=== PATIENT | female | born 1990 | race Caucasian/White ===

== ENCOUNTER → 2016-08-20 | Outpatient (REF) | payer OTHER ==
[~2016-08-20] MED LIST: ACET50TA PO; ANUS2.5C2 TOP; DOCU10CA PO; GUMMCHW PO; IBUP80TA PO; MOM30SS PO; PERCOCET PO; PRE-TAB3 PO; ZOLO50TA PO
== END ==
LOC: M LAB REF 17:09
PROVIDERS: ATTEND Advanced Practice Midwife
DX: Z34.83 Encounter for supervision of other normal pregnancy, third trimester (principal); Z36 Encounter for antenatal screening of mother; Z3A.00 Weeks of gestation of pregnancy not specified

== ENCOUNTER 2016-09-04 12:54 | Outpatient (CLI) | payer OTHER ==
[~2016-09-04] VITALS: Ht 165.1 cm; Wt 81.0 kg
[2016-09-04 13:19] VITALS: BP 99/54
== END 2016-09-04 14:28 | disposition home or self-care (01) ==
LOC: M LDO 12:54
PROVIDERS: ATTEND Obstetrics & Gynecology
DX: O47.1 False labor at or after 37 completed weeks of gestation (principal); Z3A.38 38 weeks gestation of pregnancy

== ENCOUNTER → 2016-09-09 | Outpatient (CLI) | payer OTHER ==
[~2016-09-09] MED LIST changes: +ACET500C PO; +PRENTAB9 PO
[2016-09-09 17:59] LABS: MEAN CORPUSCULAR HEMOGLOBIN 29.2 pg (27.0-33.0); MEAN CORPUSCULAR HGB CONC 33.5 g/dl (32.0-36.5); MEAN CORPUSCULAR VOLUME 87.4 fl (80.0-96.0); RED CELL DISTRIBUTION WIDTH 13.3 % (11.5-14.5)
[2016-09-10 13:57] LABS: CONTROL LINE INT CTR LINE PRESENT; HIV SCRN NEGATIVE (NEGATIVE); HIV SCRN1 NEGATIVE (NEGATIVE)
== END ==
LOC: M LAB 16:39
PROVIDERS: ATTEND Advanced Practice Midwife
DX: Z34.82 Encounter for supervision of other normal pregnancy, second trimester (principal); Z36 Encounter for antenatal screening of mother; Z3A.00 Weeks of gestation of pregnancy not specified

== ENCOUNTER 2016-09-10 00:01 | Outpatient (CLI) | payer OTHER ==
[~2016-09-10] VITALS: Ht 165.1 cm; Wt 79.0 kg
[~2016-09-10 00:01] MED LIST changes: -ACET500C PO; -PRENTAB9 PO
[2016-09-10 00:14] VITALS: BP 109/69
== END 2016-09-10 01:45 | disposition home or self-care (01) ==
LOC: M LDO 00:01
PROVIDERS: ATTEND Obstetrics & Gynecology
DX: O47.1 False labor at or after 37 completed weeks of gestation (principal); Z3A.39 39 weeks gestation of pregnancy

== ENCOUNTER 2016-09-13 06:28 | Inpatient (IN) | payer OTHER ==
[~2016-09-13] VITALS: Ht 165.1 cm; Wt 81.0 kg
[2016-09-13] VITALS (7 sets, daily range): BP systolic 108–118; BP diastolic 58–77
[2016-09-13 07:02] LABS: MEAN CORPUSCULAR VOLUME 87.8 fl (80.0-96.0); RED CELL DISTRIBUTION WIDTH 13.6 % (11.5-14.5); WHITE BLOOD COUNT 9.4 K/mm3 (4.0-10.0)
[2016-09-13] MEDS ORDERED: OXYTOCIN 30 UNITS IN 0.9% NaCl 500ML IV BAG (J2590) As Ordered ONE (07:02)
[2016-09-13] MEDS ORDERED: OXYTOCIN DRIP 30 UNITS in APPROPRIATE DILUENT 1 EA IV SCH (08:02)
[2016-09-13] MEDS ORDERED: MEASLES,MUMPS,RUBELLA VACCINE INJ (MMR-II) (90707) SC SCH (08:15)
[2016-09-13] MEDS ORDERED: ACETAMINOPHEN 500 MG TAB PO PRN (08:15)
[2016-09-13] MEDS ORDERED: DOCUSATE SODIUM 100 MG CAP PO PRN (08:15)
[2016-09-13] MEDS ORDERED: RHOGAM 300 MCG (1500 IU) INJ (J2790) IM SCH (08:15)
[2016-09-13] MEDS ORDERED: METHYLERGONOVINE MALEATE 0.2 MG TAB PO PRN (08:15)
[2016-09-13] MEDS ORDERED: ANUSOL HC CREAM 30GM TOP PRN (08:15)
[2016-09-13] MEDS ORDERED: IBUPROFEN 800 MG TAB PO PRN (08:15)
[2016-09-13] MEDS ORDERED: DIBUCAINE 1% OINTMENT 30GM TOP PRN (08:15)
--- NOTE | 2016-09-13 08:36 | IPNPDOC ---
Obstetrical Progress Note Date of Service The patient was seen on 09/13/16 at 06:45. Progress Note HISTORY AND PHYSICAL SUBJECTIVE: [Patient is a 26-year-old female who is a at 39 weeks and 4 days gestation with an UTE of 09/16/2016 based off of a second trimester ultrasound that was done at 20 weeks 6 days gestation. She initiated care at a woman's perspective at 20 weeks gestation. Patient's care is complicated due to seeking care late in the second trimester, cigarette smoker, and noncompliance with care. Patient presented to labor and delivery with complaints of regular painful contractions. Contractions started at 2 AM and became painful at 4 AM. Patient denies leaking of fluid or vaginal bleeding. Reports active movement.] ALLERGIES: Penicillin CURRENT MEDICATIONS: None OBSTETRICAL HISTORY: September 2009: 40 week of a living male weighing 7 pounds; January 2012 at 38 weeks of di/di male twins both weighing 4 lbs. 8 oz. ; April 2015: at 40 weeks 5 days' gestation of a live male weighing 7 lbs. 5 oz. No complications noted with delivery. OBSTETRICAL LABS: O+ antibody negative, urine no growth, gonorrhea and chlamydia negative, GBS negative, hepatitis B negative, rubella immune, HIV negative, syphilis negative. PAST MEDICAL HISTORY: Chickenpox as a child, SURGICAL HISTORY: Laparoscopy FAMILY HISTORY: Son has hydronephrosis SOCIAL HISTORY: Patient is single. She is a smoker and currently smoking about 8 cigarettes per day. Denies drug or alcohol use or abuse. Denies history of physical, sexual, or emotional abuse. OBJECTIVE: heart rate baseline 125, moderate variability, 1 variable D cell noted with vaginal exam, contractions every 2-4 minutes. Vital signs: blood pressure 124/81, heart rate 87, respirations 18, temperature 97.0. SVE: 67 /90/0 station, closing bag of water, positive bloody show. ASSESSMENT: IUP at 39 weeks and 4 days gestation, active labor PLAN: Admitted to labor and delivery. IV per protocol and labs per protocol. Regular diet. Out of bed as tolerated. Patient does not desire pain management. Dr. Stack present when patient was admitted and aware of plan. Anticipate cervical change. Consider AROM. Anticipate vaginal delivery. VS, I&O, 24H, Fishbone VS, I&O, 24H, Fishbone Laboratory Tests 2 2/5/17 06:52: Serology Scanned Report Hepatitis B Testing Item Value Date Time White Blood Count 9.4 K/mm3 09/13/1649 Hemoglobin 12.2 g/dl 09/13/1649 Hematocrit 36.9 % 09/13/1649 Platelet Count 160 k/mm3 09/13/1649 WALTER KOENIG CNM Sep 13, 2016 07:06
--- NOTE | 2016-09-13 08:48 | DNPDOC ---
Delivery Note Delivery Note Patient Is a 26-year-old now G 4 P 4005 at 39 weeks 4 days gestation who presented to labor and delivery in active labor. AROM at 0716 to moderate meconium. The dining car conductor, Dr. Mcdermott, was notified of meconium. She progressed to fully dilated at 0722. Patient pushed to a spontaneous vaginal delivery at 0 732 to a living male in the ANNIKA position with restitution to LOT. No Nuchal cord. Shoulders delivered with ease and the corpus immediately followed. Baby placed on maternal abdomen crying and active. Cord clamped 2 and cut by father of baby after pulsation ceased. Cord gases not obtained but cord blood obtained. Spontaneous delivery of intact placenta with a three- vessel cord by Fierro mechanism at 0 736. Uterine hemostasis achieved by rapid infusion of IV Pitocin and uterine fundal massage. Perineum and vagina inspected and found to intact. EBL 200. 's 9/9. Weight 6 lbs. 12 oz , 3064 g. Mather's name is Reese and is bottle feeding. WALTER KOENIG CNM Sep 13, 2016 08:48
[2016-09-13] MEDS: PRENATAL VITAMIN TAB PO SCH (10:40)
[2016-09-14 05:37] VITALS: BP 108/60
[2016-09-14 07:38] VITALS: BP 108/60
[2016-09-14] MEDS: PRENATAL VITAMIN TAB PO SCH (07:50)
[2016-09-14] MEDS ORDERED: ACET500C PO (08:17)
[2016-09-14] MEDS ORDERED: PRENTAB9 PO (08:17)
== END 2016-09-14 19:44 | disposition home or self-care (01) | DRG 560 ==
LOC: M LDO 06:28 → M LDI 06:38 → M OBS 10:02
PROVIDERS: ADMIT Obstetrics & Gynecology; ATTEND Obstetrics & Gynecology
PROC: 10E0XZZ Delivery of Products of Conception, External Approach (ICD-10-PCS; principal; 2016-09-13)
PROC: 10907ZC Drainage of Amniotic Fluid, Therapeutic from Products of Conception, Via Natural or Artificial Opening (ICD-10-PCS; 2016-09-13)
DX: O99.334 Smoking (tobacco) complicating childbirth (principal); F17.210 Nicotine dependence, cigarettes, uncomplicated; Z3A.39 39 weeks gestation of pregnancy; Z91.19 Patient's noncompliance with other medical treatment and regimen; Z37.0 Single live birth

== ENCOUNTER 2016-12-12 14:51 | Emergency (ER) | payer OTHER ==
[~2016-12-12] VITALS: Ht 165.1 cm; Wt 68.0 kg
[~2016-12-12 14:51] MED LIST changes: +ACET500C PO; +PRENTAB9 PO
[2016-12-12 15:33] LABS: BASO % 0.6 % (0.0-1.0); EOS # 0.1 K/mm3 (0.0-0.50); EOS % 1.8 % (0.0-3.0); LARGE UNSTAINED CELL # 0.1 K/mm3 (0.0-0.4); LARGE UNSTAINED CELL % 1.1 % (0.0-4.0); LYMPH # 1.8 K/mm3 (1.5-6.5); LYMPH % 28.5 % (24.0-44.0); MEAN CORPUSCULAR HEMOGLOBIN 29.1 pg (27.0-33.0); MEAN CORPUSCULAR VOLUME 88.4 fl (80.0-96.0); MONO # 0.3 K/mm3 (0.0-0.8); MONO % 5.4 % (0.0-5.0); NEUTROPHILS # 3.8 K/mm3 (1.8-7.7); NEUTROPHILS % 62.6 % (36.0-66.0); PLATELET COUNT, AUTOMATED 202 k/mm3 (150-450); RED CELL DISTRIBUTION WIDTH 14.2 % (11.5-14.5); WHITE BLOOD COUNT 6.1 K/mm3 (4.0-10.0)
[2016-12-12 15:39] LABS: CONTROL LINE UCG INT CTR LINE PRESENT
[2016-12-12 15:51] LABS: ANION GAP 7 MEQ/L (8-16); BLOOD UREA NITROGEN 13 MG/DL (7-18); CALCIUM LEVEL 8.7 MG/DL (8.5-10.1); CARBON DIOXIDE LEVEL 27 MEQ/L (21-32); CHLORIDE LEVEL 106 MEQ/L (98-107); CREATININE FOR GFR 0.98 MG/DL (0.55-1.02); GLOMERULAR FILTRATION RATE > 60.0 (>60); GLUCOSE, FASTING 96 MG/DL (70-105); POTASSIUM SERUM 4.1 MEQ/L (3.5-5.1); SODIUM LEVEL 140 MEQ/L (136-145)
[2016-12-12 16:05] VITALS: BP 121/69
[2016-12-12] MEDS ORDERED: CIPR500T89 PO (16:05)
[2016-12-12] MEDS ORDERED: PYRI200T5 PO (16:05)
--- NOTE | 2016-12-13 08:57 | REP ---
RENAL ULTRASOUND: HISTORY: Left flank pain. COMPARISON: None. FINDINGS: Multiple ultrasonographic images of the right kidney show the right kidney to measure 11.4 x 5.1 x 4.1 cm. The renal cortical echotexture is unremarkable. There are no masses. There is good corticomedullary differentiation. There is no hydronephrosis. There are no perinephric fluid collections. Multiple ultrasonographic images of the right kidney show the left kidney to measure 10.4 x 5.7 x 4.8 cm. The renal cortical echotexture is unremarkable. There are no masses. There is good corticomedullary differentiation. There is no hydronephrosis. There are no perinephric fluid collections. IMPRESSION: Unremarkable renal ultrasonography. Signed by Ed Flores DO 12/13/2016 09:58 A
== END 2016-12-12 16:28 | disposition home or self-care (01) ==
LOC: M ED 15:16
DX: R30.0 Dysuria (principal); Z88.0 Allergy status to penicillin

== ENCOUNTER → 2017-08-27 | Outpatient (CLI) | payer MEDICAID, OTHER | LOC: M RAD 15:10 | DX: Z34.83 Encounter for supervision of other normal pregnancy, third trimester (principal); Z3A.32 32 weeks gestation of pregnancy | CPT/HCPCS: 76820 ==

== ENCOUNTER → 2017-09-02 | Outpatient (REF) | payer MEDICAID | LOC: M LAB REF 17:12 | DX: Z34.83 Encounter for supervision of other normal pregnancy, third trimester (principal) ==

== ENCOUNTER 2017-09-06 09:52 | Inpatient (IN) | payer MEDICAID ==
[2017-09-06 11:23] LABS: AMPHETAMINES URINE REFLEX NEGATIVE (NEGATIVE); BARBITURATES URINE REFLEX NEGATIVE (NEGATIVE); BENZODIAZEPINES URINE REFLEX NEGATIVE (NEGATIVE); CANNABINOIDS URINE REFLEX NEGATIVE (NEGATIVE); COCAINE METABOLITE URINE REFLE NEGATIVE (NEGATIVE); METHADONE URINE REFLEX NEGATIVE (NEGATIVE); OPIATES URINE REFLEX NEGATIVE (NEGATIVE); PHENCYCLIDINE URINE REFLEX NEGATIVE (NEGATIVE)
[2017-09-06 11:40] LABS: HEMATOCRIT 30.6 % (36.0-47.0); MEAN CORPUSCULAR HGB CONC 32.7 g/dl (32.0-36.5); MEAN CORPUSCULAR VOLUME 85.7 fl (80.0-96.0); PLATELET COUNT, AUTOMATED 162 10^3/uL (150-450); RED BLOOD COUNT 3.57 10^6/uL (4.00-5.40); RED CELL DISTRIBUTION WIDTH 13.9 % (11.5-14.5); WHITE BLOOD COUNT 7.8 10^3/uL (4.0-10.0)
[2017-09-06] MEDS ORDERED: LR 1,000 ML IV (12:01)
[2017-09-06] MEDS: BETAMETHASONE SOLUSPAN 6MG/ML INJ 5ML (J0702) IM (12:31)
[2017-09-06 12:39] LABS: HEPATITIS B SURFACE ANTIGEN NEGATIVE (NEGATIVE)
[2017-09-06 12:40] LABS: CHLAMYDIA DNA AMPLIFICATION POSITIVE (NEGATIVE); GC DNA AMPLIFICATION NEGATIVE (NEGATIVE)
[2017-09-06 13:08] LABS: HIV 1&2 SCREEN CENTAUR NEGATIVE (NEGATIVE)
[2017-09-06] MEDS: VANCOMYCIN HCL 1,000 MG, VIAL MATE ADAPTER 1 EACH in D5W 250 ML IV (13:36)
[2017-09-06] MEDS: LACTATED RINGER'S 1000 ML IV (14:43)
[2017-09-06] MEDS: AZITHROMYCIN 250 MG TAB PO (16:49)
[2017-09-06] MEDS: OXYTOCIN DRIP 30 UNITS in APPROPRIATE DILUENT 1 EA IV (17:35)
[2017-09-06 19:56] LABS: RUBELLA IgG QUALITATIVE IMMUNE (IMMUNE)
[2017-09-06] MEDS: LOPERAMIDE 2 MG CAP PO (22:40)
[2017-09-07] MEDS: BETAMETHASONE SOLUSPAN 6MG/ML INJ 5ML (J0702) IM (00:22)
[2017-09-07] MEDS: VANCOMYCIN HCL 1,000 MG, VIAL MATE ADAPTER 1 EACH in D5W 250 ML IV (01:50)
[2017-09-07 03:40] LABS: CORD GAS HCO3 V 17.9 MEQ/L; CORD GAS O2 SAT V 86.9 %; CORD GAS PCO2 V 28.2 mmHg; CORD GAS PH V 7.421 UNITS; CORD GAS PO2 V 39.9 mmHg; CORD GAS SBC V 20.1 MEQ/L; CORD GAS TCO2 V 18.8 MEQ/L
[2017-09-07 03:43] LABS: CORD GAS ABE A -5.1; CORD GAS HCO3 A 19.3 MEQ/L; CORD GAS O2 SAT A 78.1 %; CORD GAS PCO2 A 34.7 mmHg; CORD GAS PH A 7.364 UNITS; CORD GAS SBC A 19.8 MEQ/L; CORD GAS TCO2 A 20.4 MEQ/L
[2017-09-07] MEDS ORDERED: OXYTOCIN DRIP 30 UNITS in APPROPRIATE DILUENT 1 EA IV (03:54)
[2017-09-07] MEDS ORDERED: ACETAMINOPHEN 500 MG TAB PO (04:00)
[2017-09-07] MEDS ORDERED: MEASLES,MUMPS,RUBELLA VACCINE INJ (MMR-II) (90707) SC (04:00)
[2017-09-07] MEDS ORDERED: DOCUSATE SODIUM 100 MG CAP PO (04:00)
[2017-09-07] MEDS ORDERED: METHYLERGONOVINE MALEATE 0.2 MG TAB PO (04:00)
[2017-09-07] MEDS ORDERED: RHOGAM 300 MCG (1500 IU) INJ (J2790) IM (04:00)
[2017-09-07] MEDS: PRENATAL VITAMINS CHEWABLE TABLET PO (07:37)
[2017-09-07] MEDS: IBUPROFEN 800 MG TAB PO (14:34)
[2017-09-07] MEDS: DIBUCAINE 1% OINTMENT 30GM TOP (15:43)
[2017-09-08] MEDS: PRENATAL VITAMINS CHEWABLE TABLET PO (09:36)
== END 2017-09-08 10:45 | disposition home or self-care (01) | DRG 560 ==
LOC: M LDO 09:52 → M OBS 09-07 05:44 → M LDI 12:00
PROC: 10E0XZZ Delivery of Products of Conception, External Approach (ICD-10-PCS; principal; 2017-09-06)
DX: O42.013 Preterm premature rupture of membranes, onset of labor within 24 hours of rupture, third trimester (principal); O60.14X0 Preterm labor third trimester with preterm delivery third trimester, not applicable or unspecified; F17.210 Nicotine dependence, cigarettes, uncomplicated; Z3A.34 34 weeks gestation of pregnancy; Z91.19 Patient's noncompliance with other medical treatment and regimen; Z88.0 Allergy status to penicillin; O99.334 Smoking (tobacco) complicating childbirth; Z37.0 Single live birth

== ENCOUNTER 2018-09-12 18:46 | Inpatient (IN) | payer MEDICAID, SELFPAY ==
[~2018-09-12] VITALS: Ht 165.1 cm; Wt 61.5 kg
[~2018-09-12 18:46] MED LIST changes: -ACET50TA PO; +CIPR-249 PO; +MAPA500T2 PO; +MOTR200T44 PO; +PYRI1TAB5 PO; +TYLE500T78 PO
[2018-09-12 20:59] LABS: BASO % 0.2 % (0.0-1.0); EOS # 0.1 10^3/uL (0.0-0.50); EOS % 0.4 % (0.0-3.0); HEMATOCRIT 43.6 % (36.0-47.0); HEMOGLOBIN 14.2 g/dl (12.0-15.5); LYMPH # 0.9 10^3/uL (1.5-6.5); LYMPH % 7.1 % (24.0-44.0); MEAN CORPUSCULAR HEMOGLOBIN 30.2 pg (27.0-33.0); MEAN CORPUSCULAR HGB CONC 32.6 g/dl (32.0-36.5); MEAN CORPUSCULAR VOLUME 92.8 fl (80.0-96.0); MONO # 1.2 10^3/uL (0.0-0.8); MONO % 9.6 % (0.0-5.0); NEUTROPHILS # 10.3 10^3/uL (1.8-7.7); NEUTROPHILS % 82.3 % (36.0-66.0); PLATELET COUNT, AUTOMATED 180 10^3/uL (150-450); WHITE BLOOD COUNT 12.5 10^3/uL (4.0-10.0)
[2018-09-12] MEDS ORDERED: NS 1,000 ML IV ONE (21:00)
[2018-09-12] MEDS ORDERED: ACETAMINOPHEN TAB 650MG DOSE (2X325MG) PO ONE (21:00)
[2018-09-12 21:02] LABS: HCG, SERUM QUALITATIVE NEGATIVE (NEGATIVE)
[2018-09-12 21:10] LABS: ALBUMIN 3.7 GM/DL (3.2-5.2); ALT/SGPT 16 U/L (12-78); BILIRUBIN,DIRECT 0.2 MG/DL (0.0-0.2); BILIRUBIN,TOTAL 0.6 MG/DL (0.2-1.0); BLOOD UREA NITROGEN 14 MG/DL (7-18); CARBON DIOXIDE LEVEL 28 MEQ/L (21-32); CHLORIDE LEVEL 102 MEQ/L (98-107); CREATININE FOR GFR 0.83 MG/DL (0.55-1.30); GLOMERULAR FILTRATION RATE > 60.0 (>60); GLUCOSE, FASTING 91 MG/DL (70-100); LIPASE 44 U/L (73-393); POTASSIUM SERUM 4.5 MEQ/L (3.5-5.1); SODIUM LEVEL 137 MEQ/L (136-145); TOTAL PROTEIN 7.6 GM/DL (6.4-8.2)
[2018-09-12] MEDS ORDERED: CIPROFLOXACIN 400 MG in APPROPRIATE DILUENT 1 EA IV ONE (21:30)
[2018-09-12] MEDS ORDERED: ACETAMINOPHEN 325 MG TAB PO ONE (22:00)
--- NOTE | 2018-09-12 23:31 | REPVR ---
EXAM: CT Abdomen and Pelvis Without Contrast EXAM DATE/TIME: 09/12/2018 10:26 PM CLINICAL HISTORY: 28 years old, female; Pain; Abdominal pain; Localized; Right; Additional info: R colic TECHNIQUE: Axial computed tomography images of the abdomen and pelvis without contrast. All CT scans at this facility use at least one of these dose optimization techniques: automated exposure control; mA and/or kV adjustment per patient size (includes targeted exams where dose is matched to clinical indication); or iterative reconstruction. Coronal and sagittal reformatted images were created and reviewed. COMPARISON: CT ABD PELVIS W/O CONTRAST 10/28/2015 12:47 PM FINDINGS: Lower thorax: No acute findings. ABDOMEN: Liver: There is low attenuation adjacent to the falciform ligament of the liver consistent with focal fatty infiltration. Gallbladder and bile ducts: The gallbladder is contracted with no stones. Pancreas: Normal. No ductal dilation. Spleen: Normal. No splenomegaly. Adrenals: Normal. No mass. Kidneys and ureters: Dense bilateral renal papillae. Right perinephric induration with no hydronephrosis. No ureteral calculi are identified. Stomach and bowel: Normal. No obstruction. No mucosal thickening. Appendix: There are no changes of appendicitis. A normal appendix is not seen. PELVIS: Bladder: Trace gas in urinary bladder. Reproductive: Unremarkable as visualized. ABDOMEN and PELVIS: Intraperitoneal space: Normal. No free air. No significant fluid collection. Bones/joints: No acute fracture. No dislocation. Soft tissues: Unremarkable. Vasculature: Normal. No abdominal aortic aneurysm. Lymph nodes: Normal. No enlarged lymph nodes. IMPRESSION: 1. Dense bilateral renal papillae which may be seen with a predisposition for stone formation although no definite renal or ureteral calculi are evident. 2. Right perinephric induration may reflect residual obstructive uropathy from a recently passed stone. Right pyelonephritis is not excluded. 3. Trace gas in the urinary bladder which may reflect recent catheterization. Electronically signed by: Curt Gordillo On 09/12/2018 23:31:19 PM
[2018-09-13] MEDS ORDERED: METOCLOPRAMIDE INJ 10MG/2ML VIAL (J2765) IV ONE
[2018-09-13] MEDS ORDERED: MORPHINE 10 MG/ML 1ML VIAL (J2270) IV ONE
[2018-09-13] MEDS: NS 1,000 ML IV SCH ×3 (02:50→20:07)
[2018-09-13] MEDS ORDERED: ONDANSETRON 4MG/2ML VIAL (J2405) IV PRN (03:00)
[2018-09-13] MEDS: HEPARIN SOD (PORCINE) 5000 UNITS/ML VIAL SC SCH ×3 (06:00→22:00)
--- NOTE | 2018-09-13 07:05 | HPE ---
DATE OF ADMISSION: 09/13/2018 CHIEF COMPLAINT: Burning on urination, abdominal pain, flank pain, fevers and chills. HISTORY OF PRESENT ILLNESS: Patient is a 28-year-old female. She has no significant past medical history. Presents to the emergency department with dysuria, frequency, burning for the past 2 weeks and right flank pain for the past 2 days. She denies nausea, vomiting, chest pain, cough, fevers, chills, shortness of breath. PAST MEDICAL HISTORY: See history of present illness. PAST SURGICAL HISTORY: None. HOME MEDICATIONS: None. ALLERGIES: PENICILLIN, PENICILLIN CROSS REACTORS. SOCIAL HISTORY: Smoker half a pack per day. Denies alcohol or elicit drug use. FAMILY HISTORY: Diabetes. REVIEW OF SYSTEMS: 12 point review of system was completed all of which were negative except those listed in history of present illness. VITALS ON ADMISSION: T-max 102, pulse 112, respirations 17, blood pressure 129/68, sating 100% on room air. PHYSICAL EXAMINATION: General: She is well nourished, in no apparent distress. Head: Normocephalic, atraumatic. Eyes: Extraocular movements are intact. Pupils equal, round, and reactive to light. Neck is supple. No jugular venous pulse. Lungs: Clear to auscultation. No crackles, wheezes, rales or rhonchi. Cardiovascular: Regular rate and rhythm. Normal S1, S2. No murmurs, gallops or rubs. Abdomen: Suprapubic tenderness but no rebound or guarding. Positive bowel sounds. Right CVA tenderness. Neurological exam: Alert and oriented times three. No focal deficits. Skin is intact. No rashes, lesions or breakdown. LABS AND IMAGES IN THE EMERGENCY ROOM: White count of 12, hemoglobin and hematocrit 14/43, platelet count of 180. BUN and creatinine 14/0.83. UA shows too numerous to count WBCs. Positive nitrites, bacteria. CT of the abdomen and pelvis shows dense bilateral renal papillae which may be seen with predisposition for stone formation although no definitive renal or ureteral calculi evident. Right perinephric induration may reflect residual obstructive uropathy from a recently passed stone. Right pyelonephritis not excluded. Trace gas in the urinary bladder which may reflect recent catheterization. ASSESSMENT AND PLAN: Sepsis secondary to pyelonephritis. Will place the patient on Cipro. Will await urine culture. IV fluids and Zofran as needed nausea, morphine as needed pain. Supportive deep venous thrombosis (DVT) prophylaxis, heparin subcutaneous. Gastrointestinal (GI) prophylaxis not indicated. Diet: Regular. Tobacco abuse. Patient denies nicotine replacement therapy.
[2018-09-13] MEDS: ACETAMINOPHEN TAB 650MG DOSE (2X325MG) PO PRN ×3 (07:30→21:03)
[2018-09-13] MEDS: MEROPENEM INJ 1 GM in APPROPRIATE DILUENT 1 EA IV SCH ×2 (09:21→16:14)
[2018-09-13 09:24] LABS: HEMATOCRIT 35.3 % (36.0-47.0); HEMOGLOBIN 11.8 g/dl (12.0-15.5); MEAN CORPUSCULAR HEMOGLOBIN 30.3 pg (27.0-33.0); MEAN CORPUSCULAR HGB CONC 33.4 g/dl (32.0-36.5); MEAN CORPUSCULAR VOLUME 90.7 fl (80.0-96.0); PLATELET COUNT, AUTOMATED 143 10^3/uL (150-450); RED BLOOD COUNT 3.89 10^6/uL (4.00-5.40); WHITE BLOOD COUNT 13.8 10^3/uL (4.0-10.0)
[2018-09-13 09:55] LABS: ALBUMIN 2.7 GM/DL (3.2-5.2); ALT/SGPT 12 U/L (12-78); BILIRUBIN,TOTAL 0.5 MG/DL (0.2-1.0); BLOOD UREA NITROGEN 10 MG/DL (7-18); CARBON DIOXIDE LEVEL 24 MEQ/L (21-32); CHLORIDE LEVEL 105 MEQ/L (98-107); CREATININE FOR GFR 0.71 MG/DL (0.55-1.30); GLOMERULAR FILTRATION RATE > 60.0 (>60); GLUCOSE, FASTING 130 MG/DL (70-100); POTASSIUM SERUM 3.5 MEQ/L (3.5-5.1); SODIUM LEVEL 136 MEQ/L (136-145)
[2018-09-13] MEDS ORDERED: CIPROFLOXACIN 400 MG in APPROPRIATE DILUENT 1 EA IV SCH (10:00)
[2018-09-13 10:16] LABS: ANISOCYTOSIS 1+; ATYPICAL LYMPH 1 % (0-5); LYMPHOCYTES 17 % (16-52); MONOCYTES 13 % (0-8); NEUTROPHILS 68 % (35-75); PLATELET ESTIMATE DECREASED (NORMAL)
[2018-09-13 12:00] VITALS: BP 99/59
[2018-09-13] MEDS: MORPHINE 4 MG/ML 1ML VIAL/SYRINGE (J2270) IV PRN (12:22)
[2018-09-13 14:53] VITALS: BP 99/54
[2018-09-13 16:00] VITALS: BP 110/54
[2018-09-13 20:00] VITALS: BP 128/69
[2018-09-14] VITALS: BP 111/56
[2018-09-14] MEDS: MEROPENEM INJ 1 GM in APPROPRIATE DILUENT 1 EA IV SCH ×3 (01:11→15:48)
[2018-09-14] MEDS: NS 1,000 ML IV SCH ×3 (02:44→22:03)
[2018-09-14] MEDS: ACETAMINOPHEN TAB 650MG DOSE (2X325MG) PO PRN ×2 (04:55→15:14)
[2018-09-14 05:00] VITALS: BP 101/59
[2018-09-14 05:08] LABS: HEMATOCRIT 37.1 % (36.0-47.0); HEMOGLOBIN 12.1 g/dl (12.0-15.5); MEAN CORPUSCULAR HEMOGLOBIN 29.7 pg (27.0-33.0); MEAN CORPUSCULAR HGB CONC 32.6 g/dl (32.0-36.5); MEAN CORPUSCULAR VOLUME 90.9 fl (80.0-96.0); PLATELET COUNT, AUTOMATED 142 10^3/uL (150-450); RED BLOOD COUNT 4.08 10^6/uL (4.00-5.40); WHITE BLOOD COUNT 11.7 10^3/uL (4.0-10.0)
[2018-09-14 05:37] LABS: BLOOD UREA NITROGEN 7 MG/DL (7-18); CALCIUM LEVEL 7.9 MG/DL (8.5-10.1); CARBON DIOXIDE LEVEL 23 MEQ/L (21-32); CHLORIDE LEVEL 107 MEQ/L (98-107); CREATININE FOR GFR 0.62 MG/DL (0.55-1.30); GLOMERULAR FILTRATION RATE > 60.0 (>60); GLUCOSE, FASTING 85 MG/DL (70-100); POTASSIUM SERUM 3.8 MEQ/L (3.5-5.1); SODIUM LEVEL 137 MEQ/L (136-145)
[2018-09-14] MEDS: HEPARIN SOD (PORCINE) 5000 UNITS/ML VIAL SC SCH ×3 (06:00→22:03)
[2018-09-14 08:00] VITALS: BP 100/55
[2018-09-14] MEDS ORDERED: ISOVUE-370 76% 100ML VIAL (Q9967) As Ordered ONE (11:26)
--- NOTE | 2018-09-14 12:21 | REP ---
CT abdomen and pelvis with IV but without oral contrast: History: Followup pyelonephritis. Elevated CRP level, fever. Comparison study September 12, 2018. CT contrast dose: 100 mL intravenous Isovue 370. CT findings: Preliminary digital court clerk radiograph demonstrates gaseous distension of the colon consistent with ileus. The lung bases remain clear. The liver and spleen are normal in size and homogeneous in texture. No adrenal lesion is seen. No pancreatic abnormality is noted. There is no evidence of ascites. There are patchy areas of decreased enhancement in the right renal parenchyma at mid upper pole level consistent with pyelonephritis. There is no evidence to suggest renal carbuncle or perinephric abscess. There is still some edema in the perinephric fat surrounding the right kidney unchanged from December 10, 2018 prior study. There is minimal enhancement in the renal pelvic lining which goes along with pyelonephritis. No stone disease is appreciated. No arterial or venous abnormality is observed. The left kidney is morphologically intact. No retroperitoneal mass or adenopathy is seen. The uterus is retroverted and retroflexed. No adnexal abnormality is seen. Multiple air and fluid filled loops of small and large bowel are seen throughout the abdomen consistent with ileus pattern. No evidence of free air or abnormal fluid collection. Impression: Findings compatible with pyelonephritis affecting the mid and upper pole of the right kidney. No evidence of abscess. Some persistent perinephric edema. No stone disease seen. Ileus pattern in the bowel gas. Electronically Signed by Aneesh Simmons MD 09/14/2018 06:52 P
--- NOTE | 2018-09-14 14:41 | IPNPDOC ---
Text Note Date of Service The patient was seen on 09/14/18. NOTE Subjective: Patient states abdominal pain is improving. Denies any nausea or v omiting. Was initially planning to leave AGAINST MEDICAL ADVICE however decided to stay for further medical treatment. Objective: Vitals: (see below) General: No acute distress, laying comfortably in bed. HEENT: Moist mucous membranes. Neck: No JVD or lymphadenopathy Cardiac: RRR, No murmurs Pulm: Clear to auscultation b/l. No wheezing, rhonchi Abd: NT/ND + BS. Minimal tenderness at the right CVA. Ext: No edema or cyanosis Neuro: Strength 5/5 BUE and BLE. CN 2-12 intact. F to N intact Negative pronator drift. Alert and oriented 3. Labs (see below) Images: CT abdomen and pelvis on 09/14/18 Impression: Findings compatible with pyelonephritis affecting the mid and upper pole of the right kidney. No evidence of abscess. Some persistent perinephric edema. No stone disease seen. Ileus pattern in the bowel gas. Assessment/Plan 1. Sepsis secondary to acute pyelonephritis. On meropenem pending a urine culture. Blood cultures negative thus far. Patient is not tachycardic at this t vern. Continue IV fluids. Leukocytosis improving. 2. Tobacco abuse cessation counseling. DVT prophy: Heparin subcutaneous VS,Fishbone, I+O VS, Fishbone, I+O Laboratory Tests 09/14/18 04:49 Red Blood Count 4.08, Mean Corpuscular Volume 90.9, Mean Corpuscular Hemoglobin 29.7, Mean Corpuscular Hemoglobin Concent 32.6, Red Cell Distribution Width 12.8, Calcium Level 7.9 L Vital Signs Date Time Temp Pulse Resp B/P (MAP) Pulse Ox O2 Delivery O2 Flow Rate FiO2 09/14/18 08:00 98.4 82 22 100/55 (70) 99 09/13/18 00:20 Room Air I&O- Last 24 Hours up to 6 AM 09/14/18 06:00 Intake Total 2930 ml Output Total 1650 ml Balance 1280 ml ANNY HERRMANN MD Sep 14, 2018 14:41
[2018-09-14 16:00] VITALS: BP 110/67
[2018-09-14 20:00] VITALS: BP 108/62
[2018-09-15] MEDS: MORPHINE 4 MG/ML 1ML VIAL/SYRINGE (J2270) IV PRN (00:36)
[2018-09-15] MEDS: MEROPENEM INJ 1 GM in APPROPRIATE DILUENT 1 EA IV SCH ×2 (00:37→09:39)
[2018-09-15 04:52] VITALS: BP 98/52
[2018-09-15 05:02] LABS: HEMATOCRIT 33.5 % (36.0-47.0); HEMOGLOBIN 11.2 g/dl (12.0-15.5); MEAN CORPUSCULAR HEMOGLOBIN 29.5 pg (27.0-33.0); MEAN CORPUSCULAR HGB CONC 33.4 g/dl (32.0-36.5); MEAN CORPUSCULAR VOLUME 88.2 fl (80.0-96.0); PLATELET COUNT, AUTOMATED 150 10^3/uL (150-450); WHITE BLOOD COUNT 7.6 10^3/uL (4.0-10.0)
[2018-09-15 05:21] LABS: BLOOD UREA NITROGEN 4 MG/DL (7-18); CALCIUM LEVEL 7.7 MG/DL (8.5-10.1); CARBON DIOXIDE LEVEL 25 MEQ/L (21-32); CHLORIDE LEVEL 108 MEQ/L (98-107); CREATININE FOR GFR 0.45 MG/DL (0.55-1.30); GLOMERULAR FILTRATION RATE > 60.0 (>60); GLUCOSE, FASTING 99 MG/DL (70-100); POTASSIUM SERUM 3.7 MEQ/L (3.5-5.1); SODIUM LEVEL 139 MEQ/L (136-145)
[2018-09-15] MEDS: HEPARIN SOD (PORCINE) 5000 UNITS/ML VIAL SC SCH (05:46)
[2018-09-15 05:55] VITALS: BP 118/70
[2018-09-15] MEDS ORDERED: ACID1CAP5 PO (10:23)
[2018-09-15] MEDS ORDERED: LEVA750T7 PO (10:23)
--- NOTE | 2018-09-15 16:29 | DS.PDOC ---
Discharge Summary General Date of Admission Sep 13, 2018 at 02:50 Date of Discharge 09/15/18 Attending Physician: ANNY HERRMANN MD Discharge Summary PROCEDURES PERFORMED DURING STAY: None. ADMITTING/DISCHARGE DIAGNOSES: 1. Acute Pyelonephritis COMPLICATIONS/CHIEF COMPLAINT: Dysuria/flank pain HISTORY OF PRESENT ILLNESS/HOSPITAL COURSE: This is a 28 y/o F with no significant PMHx who presents with dysuria and flank pain. Pt was started on IVF, CT Abd/pelvis noted pyelonephritis with ? Passed stone, however no abscess/stones noted. Pt was started on meropenem pending cx given PCN allergy. Bld cx negative. Urine cx noted, and Abx changed to PO. Pt tolerating diet, ambulating well. Pt is hemodynamically stable and will be d/c home. Pt is to return to ED if symptoms worsen. DISCHARGE MEDICATIONS: Please see below. ALLERGIES: Please see below. PHYSICAL EXAMINATION ON DISCHARGE: Vitals: (see below) General: No acute distress, laying comfortably in bed. HEENT: Moist mucous membranes. Neck: No JVD or lymphadenopathy Cardiac: RRR, No murmurs Pulm: Clear to auscultation b/l. No wheezing, rhonchi Abd: NT/ND + BS Ext: No edema or cyanosis LABORATORY DATA: Please see below. IMAGING: CT abdomen and pelvis on 09/14/18 Impression: Findings compatible with pyelonephritis affecting the mid and upper pole of the right kidney. No evidence of abscess. Some persistent perinephric edema. No stone disease seen. Ileus pattern in the bowel gas. PROGNOSIS: Good ACTIVITY: As tolerated. DIET: Regular DISCHARGE PLAN/DISPOSITION: Home DISCHARGE INSTRUCTIONS: 1. F/u with PCP in 1-2 weeks. Return to ED if symptoms worsen. DISCHARGE CONDITION: Stable. TIME SPENT ON DISCHARGE: Greater than 30 minutes. Vital Signs/I&Os Vital Signs Date Time Temp Pulse Resp B/P (MAP) Pulse Ox O2 Delivery O2 Flow Rate FiO2 09/15/18 05:55 98.0 91 15 118/70 (86) 95 09/13/18 00:20 Room Air I&O- Last 24 Hours up to 6 AM 09/15/18 06:00 Intake Total 2340 ml Output Total 700 ml Balance 1640 ml Laboratory Data Labs 24H Laboratory Tests 2 09/15/18 04:48: Nucleated Red Blood Cells % (auto) 0.0, Anion Gap 6L, Glomerular Filtration Rate > 60.0, Blood Urea Nitrogen 4L, Creatinine 0.45L, Sodium Level 139, Potassium Level 3.7, Chloride Level 108H, Carbon Dioxide Level 25, Calcium Level 7.7L CBC/BMP Laboratory Tests 09/15/18 04:48 Red Blood Count 3.80 L, Mean Corpuscular Volume 88.2, Mean Corpuscular Hemoglobin 29.5, Mean Corpuscular Hemoglobin Concent 33.4, Red Cell Distribution Width 12.7, Calcium Level 7.7 L Microbiology Microbiology 09/12/18 Blood Culture - Preliminary, Resulted No Growth after 48 hours. All Specime... 09/12/18 Blood Culture - Preliminary, Resulted No Growth after 48 hours. All Specime... 09/12/18 Urine Culture - Final, Complete Escherichia Coli Discharge Medications Scheduled Lactobacillus (Acidophilus Lactobacilli) 1 Cap Cap, 1 CAP PO BID Levofloxacin Hemihydrate (Levaquin) 750 Mg Tab, 1 TAB PO DAILY Allergies Coded Allergies: Penicillins (Verified Allergy, Intermediate, RASH, 11/15/17) Penicillins Cross Reactors (Verified Allergy, Intermediate, RASH, 11/15/17) ANNY HERRMANN MD Sep 15, 2018 16:29
== END 2018-09-15 12:09 | disposition home or self-care (01) | DRG 463 ==
LOC: M ED 18:46 → M ED INP 09-13 02:50 → M ICU 09-13 17:20 → M MSPAV 09-15 05:55
PROVIDERS: ADMIT Internal Medicine; ATTEND Internal Medicine
DX: N10 Acute pyelonephritis (principal); F17.200 Nicotine dependence, unspecified, uncomplicated; Z88.0 Allergy status to penicillin

== ENCOUNTER 2019-04-29 00:58 | Emergency (ER) | payer MEDICAID, SELFPAY ==
[~2019-04-29] VITALS: Ht 165.1 cm; Wt 60.0 kg
[~2019-04-29 00:58] MED LIST changes: +ACID1CAP5 PO; +LEVA750T7 PO
[2019-04-29 01:00] VITALS: BP 118/60
--- NOTE | 2019-04-29 07:21 | ECGEPIP ---
[facility] - ED Test Date: 2019-04-29 Pat Name: TREV CASTILLO Department: Room: - Gender: Female Solutions Engineer: FALGUNI : [id number] Requested By: KIP De La Fuente Order Number: [id number] Reading MD: Malick Pace Measurements Intervals [place] Rate: 100 P: 78 NV: 162 QRS: 99 QRSD: 89 T: 81 QT: 342 QTc: 442 Interpretive Statements SINUS TACHYCARDIA RIGHT AXIS DEVIATION NONSPECIFIC T-WAVE ABNORMALITY SIMILAR TO 11/15/17 Electronically Signed on 04-29-2019 7:21:23 EDT by Malick Pace
[2019-04-30] MEDS ORDERED: HYDR-3363 PO (01:56)
[2019-04-30] MEDS ORDERED: ONDA4TAB6 PO (01:56)
[2019-04-30] MEDS ORDERED: PRED20TA PO (01:56)
[2019-04-30] MEDS ORDERED: BENA25CA4 PO (01:56)
== END 2019-04-29 03:22 | disposition left against medical advice (07) ==
LOC: M ED 00:58
DX: Z53.21 Procedure and treatment not carried out due to patient leaving prior to being seen by health care provider (principal)

== ENCOUNTER 2019-04-29 22:18 | Emergency (ER) | payer MEDICAID, SELFPAY ==
[~2019-04-29] VITALS: Ht 157.5 cm; Wt 60.0 kg
[2019-04-29] MEDS ORDERED: NS 1,000 ML IV ONE (23:00)
[2019-04-29] MEDS ORDERED: diphenhydrAMINE INJ 50MG/ML VIAL (J1200) IV ONE (23:00)
[2019-04-29] MEDS ORDERED: hydrOXYzine 25 MG TAB PO STA (23:00)
[2019-04-29] MEDS ORDERED: KETOROLAC 30 MG/ML VIAL (J1885) IV ONE (23:00)
[2019-04-29] MEDS ORDERED: methylPREDNISolone INJ 125 MG/2 ML VIAL (J2930) IV ONE (23:00)
[2019-04-29] MEDS ORDERED: GI COCKTAIL 50ML BTL(HYOSCYAMINE/MAALOX/LIDOCAINE VISCOUS)(1:3:1) PO ONE (23:00)
[2019-04-29 23:47] LABS: EOS # 0.1 10^3/uL (0.0-0.5); EOS % 2.9 % (0.0-3.0); HEMATOCRIT 40.4 % (36.0-47.0); HEMOGLOBIN 12.7 g/dl (12.0-15.5); LYMPH # 1.1 10^3/uL (1.5-5.0); MEAN CORPUSCULAR HGB CONC 31.4 g/dl (32.0-36.5); MEAN CORPUSCULAR VOLUME 82.6 fl (80.0-96.0); MONO # 0.5 10^3/uL (0.0-0.8); MONO % 14.9 % (0.0-5.0); NEUTROPHILS # 1.5 10^3/uL (1.5-8.5); NEUTROPHILS % 47.2 % (36.0-66.0); PLATELET COUNT, AUTOMATED 132 10^3/uL (150-450); RED BLOOD COUNT 4.89 10^6/uL (4.00-5.40); WHITE BLOOD COUNT 3.2 10^3/uL (4.0-10.0)
[2019-04-30 00:20] LABS: INFLUENZA A AMPLIFICATION NEGATIVE (NEGATIVE); INFLUENZA B AMPLIFICATION NEGATIVE (NEGATIVE)
[2019-04-30 00:29] LABS: ALBUMIN 2.7 GM/DL (3.2-5.2); ALT/SGPT 1843 U/L (12-78); BILIRUBIN,TOTAL 2.4 MG/DL (0.2-1.0); BLOOD UREA NITROGEN 11 MG/DL (7-18); CALCIUM LEVEL 7.6 MG/DL (8.5-10.1); CARBON DIOXIDE LEVEL 26 MEQ/L (21-32); CHLORIDE LEVEL 107 MEQ/L (98-107); CREATININE FOR GFR 1.02 MG/DL (0.55-1.30); GLOMERULAR FILTRATION RATE > 60.0 (>60); GLUCOSE, FASTING 46 MG/DL (70-100); LIPASE 142 U/L (73-393); POTASSIUM SERUM 3.9 MEQ/L (3.5-5.1); SODIUM LEVEL 140 MEQ/L (136-145)
--- NOTE | 2019-04-30 00:37 | REPVR ---
PROCEDURE INFORMATION: Exam: US Abdomen Limited, Right Upper Quadrant Exam date and time: 04/30/2019 12:01 AM Clinical history: 28 years old, female; Abdominal pain; Epigastric; Additional info: Epigastric pain TECHNIQUE: Imaging protocol: Real-time ultrasound of the abdomen with image documentation. Examination was focused on the right upper quadrant. COMPARISON: RENAL US 12/12/2016 3:32 PM FINDINGS: Pancreas is sonographically normal. Liver is homogeneous in echotexture, with no focal lesion. Gallbladder is contracted. No stone or adjacent fluid. Gallbladder wall measures 3.6 mm No elicited pain to RUQ transducer pressure during the exam. No intrahepatic bile duct dilatation. Common bile duct measures mm in diameter. Right kidney measures 12.2 cm in long axis. Right kidney appears normal. No free fluid. IMPRESSION: Contracted gallbladder with wall thickening but no stone or duct dilatation and was no sonographic Cavanaugh changes. Acute cholecystitis is felt to be unlikely Electronically signed by: Hakan Urena On 04/30/2019 00:36:51 AM
[2019-04-30] MEDS ORDERED: DICYCLOMINE 10 MG CAP PO ONE (00:45)
[2019-04-30] MEDS ORDERED: BENA25CA4 PO (01:56)
[2019-04-30] MEDS ORDERED: HYDR-3363 PO (01:56)
[2019-04-30] MEDS ORDERED: ONDA4TAB6 PO (01:56)
[2019-04-30] MEDS ORDERED: PRED20TA PO (01:56)
[2019-04-30 02:09] VITALS: BP 120/68
--- NOTE | 2019-04-30 10:51 | REP ---
CHEST, TWO VIEWS: There is no evidence of acute infiltrate. No pleural effusion is seen. The heart is normal in size. The mediastinal silhouette is unremarkable. The visualized osseous structures are intact. IMPRESSION: No acute pulmonary disease. Electronically Signed by Robson Espana MD 04/30/2019 05:59 P
[2019-05-01 10:12] LABS: HEPATITIS B SURFACE ANTIGEN NEGATIVE (NEGATIVE)
[2019-05-01 10:39] LABS: HEPATITIS C VIRUS ABY INDEX 0.1 INDEX (<0.8)
[2019-05-01 10:40] LABS: HEPATITIS B CORE ANTIBODY IGM NEGATIVE (NEGATIVE)
[2019-05-01 12:35] LABS: HEPATITIS A ANTIBODY IGM POSITIVE (NEGATIVE)
[2019-05-03 14:18] LABS: Lyme Disease IgG Ab 18 kDa Ban Absent (.); Lyme Disease IgG Ab 23 kDa Ban Absent (.); Lyme Disease IgG Ab 28 kDa Ban Absent (.); Lyme Disease IgG Ab 30 kDa Ban Absent (.); Lyme Disease IgG Ab 39 kDa Ban Absent (.); Lyme Disease IgG Ab 41 kDa Ban Absent (.); Lyme Disease IgG Ab 45 kDa Ban Absent (.); Lyme Disease IgG Ab 58 kDa Ban Absent (.); Lyme Disease IgG Ab 66 kDa Ban Absent (.); Lyme Disease IgG Ab 93 kDa Ban Absent (.); Lyme Disease IgG West Blot Int Negative (.); Lyme Disease IgG/IgM Antibodie <0.91 ISR (0.00-0.90); Lyme Disease IgM Ab 23 kDa Ban Absent (.); Lyme Disease IgM Ab 39 kDa Ban Absent (.); Lyme Disease IgM Ab 41 kDa Ban Absent (.); Lyme Disease IgM Ab Quantitati 0.95 index (0.00-0.79); Lyme Disease IgM West Blot Int Negative (.)
== END 2019-04-30 02:30 | disposition home or self-care (01) ==
LOC: M ED 22:18
DX: L29.9 Pruritus, unspecified (principal); R21 Rash and other nonspecific skin eruption; R94.5 Abnormal results of liver function studies; R10.13 Epigastric pain; K83.8 Other specified diseases of biliary tract; R53.83 Other fatigue; M79.10 Myalgia, unspecified site; F41.9 Anxiety disorder, unspecified; F17.200 Nicotine dependence, unspecified, uncomplicated; Z88.0 Allergy status to penicillin
CPT/HCPCS: 36415; 71046; 76705; 80053; 81001; 83690; 84443; 85025; 86617; 86705; 86709; 86803; 87340; 87502; 96374; 96375; 99284; J1200; J1885; J2930

== ENCOUNTER 2019-05-03 23:10 | Emergency (ER) | payer SELFPAY ==
[~2019-05-03] VITALS: Ht 162.6 cm; Wt 60.0 kg
[2019-05-03 23:10] VITALS: BP 134/82
[~2019-05-03 23:10] MED LIST changes: +BENA25CA4 PO; +HYDR-3363 PO; +ONDA4TAB6 PO; +PRED20TA PO
== END 2019-05-03 23:40 | disposition left against medical advice (07) ==
LOC: M ED 23:10
DX: Z53.21 Procedure and treatment not carried out due to patient leaving prior to being seen by health care provider (principal)

== ENCOUNTER 2019-05-08 01:01 | Inpatient (IN) | payer MEDICAID, SELFPAY ==
[~2019-05-08] VITALS: Ht 165.1 cm; Wt 64.3 kg
[2019-05-08] MEDS ORDERED: ACETAMINOPHEN 500 MG TAB PO ONE (01:30)
[2019-05-08] MEDS ORDERED: CIPROFLOXACIN 400 MG in IV 1 EA IV ONE (01:30)
[2019-05-08] MEDS ORDERED: NS 1,000 ML IV ONE (01:30)
[2019-05-08] MEDS ORDERED: metroNIDAZOLE 500 MG in IV 1 EA IV ONE (01:30)
[2019-05-08 01:50] LABS: BASO # 0.1 10^3/uL (0.0-0.2); BASO % 0.3 % (0.0-1.0); EOS % 0.1 % (0.0-3.0); HEMATOCRIT 39.2 % (36.0-47.0); HEMOGLOBIN 12.8 g/dl (12.0-15.5); LYMPH # 1.3 10^3/uL (1.5-5.0); LYMPH % 9.1 % (24.0-44.0); MEAN CORPUSCULAR HEMOGLOBIN 26.4 pg (27.0-33.0); MEAN CORPUSCULAR HGB CONC 32.7 g/dl (32.0-36.5); MEAN CORPUSCULAR VOLUME 80.8 fl (80.0-96.0); MONO # 1.3 10^3/uL (0.0-0.8); MONO % 8.6 % (0.0-5.0); NEUTROPHILS % 81.2 % (36.0-66.0); PLATELET COUNT, AUTOMATED 265 10^3/uL (150-450); RED BLOOD COUNT 4.85 10^6/uL (4.00-5.40); WHITE BLOOD COUNT 14.8 10^3/uL (4.0-10.0)
[2019-05-08 01:57] LABS: AMORPHOUS SEDIMENT SMALL (NEGATIVE); APPEARANCE, URINE CLOUDY (CLEAR); BACTERIA, URINE AUTO 1+ (NEGATIVE); BILIRUBIN, URINE AUTO NEGATIVE (NEGATIVE); BLOOD, URINE BLOOD 1+ (NEGATIVE); COLOR, URINE AMBER (YELLOW); GLUCOSE, URINE (UA) AUTO NEGATIVE (NEGATIVE); KETONE, URINE AUTO NEGATIVE (NEGATIVE); LEUKOCYTE ESTERASE, URINE AUTO 3+ (NEGATIVE); MUCUS, URINE SMALL (NEGATIVE); NITRITE, URINE AUTO POSITIVE (NEGATIVE); PROTEIN, URINE AUTO 2+ mg/dL (NEGATIVE); RBC, URINE AUTO 10 /HPF (0-3); SPECIFIC GRAVITY URINE AUTO 1.008 (1.002-1.035); SQUAMOUS EPITHELIAL CELL UR AU 3 /HPF (0-6); WBC, URINE AUTO TNTC /HPF (0-3)
[2019-05-08] MEDS ORDERED: diphenhydrAMINE INJ 50MG/ML VIAL (J1200) IV ONE (02:15)
[2019-05-08] MEDS ORDERED: cefTRIAXone SOD 2 GM in D5W MINI-BAG PLUS 50 ML IV ONE (02:15)
--- NOTE | 2019-05-08 02:59 | REPVR ---
PROCEDURE INFORMATION: Exam: CT Abdomen and pelvis without contrast Exam date and time: 05/08/2019 2:16 AM Clinical history: 28 years old, female; Abdominal pain; Additional info: Pyelo eval TECHNIQUE: Imaging protocol: Computed tomography of the abdomen and pelvis without contrast. Radiation optimization: All CT scans at this facility use at least one of these dose optimization techniques: automated exposure control; mA and/or kV adjustment per patient size (includes targeted exams where dose is matched to clinical indication); or iterative reconstruction. COMPARISON: CT ABD PELVIS W/O CONTRAST 09/12/2018 10:12 PM FINDINGS: Liver: Normal. No mass. Gallbladder and bile ducts: Normal. No calcified stones. No ductal dilation. Pancreas: Normal. No ductal dilation. Spleen: Normal. No splenomegaly. Adrenals: Normal. No mass. Kidneys and ureters: Normal. No hydronephrosis. Stomach and bowel: Unremarkable. No obstruction. No mucosal thickening. Appendix: No evidence of appendicitis. Intraperitoneal space: Unremarkable. No free air. No significant fluid collection. Vasculature: Unremarkable. No abdominal aortic aneurysm. Lymph nodes: Unremarkable. No enlarged lymph nodes. Bladder: Unremarkable as visualized. Reproductive: Unremarkable as visualized. Bones/joints: Unremarkable. No acute fracture. Soft tissues: Unremarkable. IMPRESSION: No acute findings. Kidneys are grossly unremarkable but evaluation for pyelonephritis is limited without intravenous contrast. Electronically signed by: Ahsan Porter On 05/08/2019 02:58:38 AM
[2019-05-08] MEDS ORDERED: ACETAMINOPHEN TAB 650MG DOSE (2X325MG) PO PRN (04:45)
[2019-05-08] MEDS ORDERED: SODIUM CHLORIDE 0.9% 1000ML IV SCH (04:45)
--- NOTE | 2019-05-08 04:49 | HPEPDOC ---
[facility], [place] Medical History & Physical Date of Admission May 08, 2019 Date of Service: May 08, 2019 Attending Physician: ALYSSA CHAMBERS MD History and Physical TIME OF SERVICE: 455AM CHIEF COMPLAINT: flank pain HISTORY OF PRESENT ILLNESS: This is a 29-year-old female who presents with complaints of the nonradiating, 7 of 10 in severity, back pain for one day. Associated symptoms include cramping abdominal pain, diarrhea, dysuria, nausea, fever and chills. She denies having vomiting or diarrhea. Per chart review she was admitted in September 2018 for management of sepsis secondary to UTI; today she reports that her symptoms are not as bad as they were during that admission. Per discussion with the ED provider her temperature was 101.8, WBC count was 14.8, lactic acid was wnl & UA was positive. CT of the abdomen was unremarkable. She was started on antibiotics and IV fluids. REVIEW OF SYSTEMS: 12 point review of systems negative except as listed in HPI PAST MEDICAL/ SURGICAL HISTORY: Hepatitis A SOCIAL HISTORY: Smoker. IV drug use (last used meth 2 weeks ago / denies cocaine or heroin abuse) Is homeless reports her mother left her & moved to [place] FAMILY HISTORY: Multiple family members have kidney problems including hydronephrosis. Her father has 1 kidney ALLERGIES: Please see below. HOME MEDICATIONS: Please see below. PHYSICAL EXAMINATION: VITAL SIGNS: Please see below. GENERAL APPEARANCE: Well-nourished, well-developed, does not appear toxic, HEENT: Normocephalic, atraumatic, mucous membranes moist and pink, has conjunctival injection from crying CARDIOVASCULAR: Tachycardic. Extremities warm and well-perfused LUNGS: Clear to auscultation bilaterally on room air ABDOMEN: Bowel signs are hypoactive. Abdomen and flank are tender on palpation MUSCULOSKELETAL: Range of motion intact in all 4 extremities INTEGUMENT: Slightly flushed and diaphoretic NEUROLOGICAL: Cranial 2-12 are grossly intact. Speech is not dysarthric PSYCHIATRIC: appears depressed is teary during parts of exam LABORATORY DATA: See below. (chemistry is pending) IMAGING: CT of the abdomen and pelvis. "IMPRESSION: No acute findings. Kidneys are grossly unremarkable but evaluation for pyelonephritis is limited without intravenous contrast." MICROBIOLOGY: Please see below. ASSESSMENT: is a 28-year-old female with a past medical history of Hep A and IVDU who will be admitted for management of sepsis secondary to UTI. PLAN: 1. Sepsis 2/2 UTI SIRS criteria include elevated temperature, heart rate, and WBC count Lactic acid is within normal limits NEW2S Score = 4 = low, medium risk UA is positive for leukocyte esterase, WBCs and bacteria Symptoms of pyelonephritis include abdominal pain, back pain, dysuria and fever Plan: admit to PCU / telemetry / Sepsis protocol /continue ceftriaxone/ c/w IVF /f/u blood cx, UA w Cx / Tylenol when necessary for fever 2. Polysubstance abuse. She has been involved in high risk behavior & asked for a test; she also agreed to HIV, hepatitis & G/C Plan: Declined nicotine patch/follow-up drug screen/follow-up HIV and hepatitis panel,/follow-up chlamydia and gonorrhea / social consult for assistance with placement [place] Prediction Score to determine need for AC in hospitalized pts = 1 point = pharmacological prophylaxis not indicated= SCDs Disposition pending clinical course Vital Signs Vital Signs Date Time Temp Pulse Resp B/P (MAP) Pulse Ox O2 Delivery O2 Flow Rate FiO2 05/08/19 02:56 122 05/08/19 02:54 101.8 18 127/80 99 Room Air Laboratory Data Labs 24H Laboratory Tests 2 05/08/19 01:33: Immature Granulocyte % (Auto) 0.7, White Blood Count 14.8H, Red Blood Count 4.85, Hemoglobin 12.8, Hematocrit 39.2, Mean Corpuscular Volume 80.8, Mean Corpuscular Hemoglobin 26.4L, Mean Corpuscular Hemoglobin Concent 32.7, Red Cell Distribution Width 20.7H, Platelet Count 265, Neutrophils (%) (Auto) 81.2H, Lymphocytes (%) (Auto) 9.1L, Monocytes (%) (Auto) 8.6H, Eosinophils (%) (Auto) 0.1, Basophils (%) (Auto) 0.3, Neutrophils # (Auto) 12.0H, Lymphocytes # (Auto) 1.3L, Monocytes # (Auto) 1.3H, Eosinophils # (Auto) 0.0, Basophils # (Auto) 0.1, Nucleated Red Blood Cells % (auto) 0.0, Urine Appearance CLOUDYH, Urine Color TRAM, Urine pH 7.0, Urine Specific Sterling 1.008, Urine Protein 2+H, Urine Glucose (UA) NEGATIVE, Urine Ketones NEGATIVE, Urine Urobilinogen 2.0H, Urine Bilirubin NEGATIVE, Urine Leukocyte Esterase 3+H, Urine Blood 1+H, Urine Nitrite POSITIVE, Urine WBC (Auto) TNTCH, Urine RBC (Auto) 10H, Urine Hyaline Casts (Auto) 0, Urine Bacteria (Auto) 1+H, Urine Squamous Epithelial Cells 3, Urine Amorphous Sediment SMALLH, Urine Mucus (Auto) SMALL, Urine Sperm (Auto) , Lactic Acid Level 1.6 CBC/BMP Laboratory Tests 05/08/19 01:33 Red Blood Count 4.85, Mean Corpuscular Volume 80.8, Mean Corpuscular Hemoglobin 26.4 L, Mean Corpuscular Hemoglobin Concent 32.7, Red Cell Distribution Width 20.7 H, Neutrophils (%) (Auto) 81.2 H, Lymphocytes (%) (Auto) 9.1 L, Monocytes (%) (Auto) 8.6 H, Eosinophils (%) (Auto) 0.1, Basophils (%) (Auto) 0.3, Neutrophils # (Auto) 12.0 H, Lymphocytes # (Auto) 1.3 L, Monocytes # (Auto) 1.3 H, Eosinophils # (Auto) 0.0, Basophils # (Auto) 0.1 Microbiology Microbiology 05/08/19 Urine Culture, Received Pending 05/08/19 Blood Culture, Received Pending Home Medications Scheduled Levofloxacin (Levaquin) 750 Mg Tablet, 750 MG PO DAILY Allergies Coded Allergies: Penicillins (Verified Allergy, Intermediate, RASH, 04/29/19) A-FIB/CHADSVASC A-FIB History Current/History of A-Fib/PAF?: No Current PO Anticoag Therapy: ALYSSA Gabriel MD May 08, 2019 04:49
[2019-05-08 06:31] VITALS: BP 121/65
[2019-05-08 07:43] VITALS: BP 118/75
[2019-05-08 07:45] VITALS: BP 109/60
[2019-05-08 07:48] VITALS: BP 116/62
[2019-05-08 07:49] LABS: HCG, SERUM QUALITATIVE NEGATIVE (NEGATIVE)
[2019-05-08 07:50] LABS: ALBUMIN 2.5 GM/DL (3.2-5.2); ALT/SGPT 443 U/L (12-78); BILIRUBIN,DIRECT 3.5 MG/DL (0.0-0.2); BILIRUBIN,TOTAL 3.9 MG/DL (0.2-1.0); BLOOD UREA NITROGEN 6 MG/DL (7-18); CALCIUM LEVEL 7.9 MG/DL (8.5-10.1); CARBON DIOXIDE LEVEL 25 MEQ/L (21-32); CHLORIDE LEVEL 107 MEQ/L (98-107); CREATININE FOR GFR 0.92 MG/DL (0.55-1.30); GLOMERULAR FILTRATION RATE > 60.0 (>60); GLUCOSE, FASTING 101 MG/DL (70-100); LIPASE 76 U/L (73-393); POTASSIUM SERUM 3.2 MEQ/L (3.5-5.1); SODIUM LEVEL 141 MEQ/L (136-145); TOTAL PROTEIN 6.7 GM/DL (6.4-8.2)
[2019-05-08] MEDS ORDERED: POTASSIUM CHLORIDE 10 MEQ SR TABLET PO ONE (09:00)
--- NOTE | 2019-05-08 11:12 | IPNPDOC ---
Text Note Date of Service The patient was seen on 05/08/19. NOTE Ms. Ghotra was seen at bedside this morning and denied any acute changes to her condition overnight. She did say that her flank pain was now a 7/10 and had increased from a 5/10 on admission. She also says she feels a pressure-like sensation when urinating that makes it difficult to maintain her stream. She states she is having mild nausea without vomiting and is able to eat breakfast. She also states she is having diffuse cramp-like abdominal pain that is sporadic and worsens upon palpation. She denies SOB, cough, chest pain, or palpitations. She was febrile at admission at 101.8F but is afebrile this morning. General: Pt is a thin 28 year old woman who was in holding her stomach and wrapping her self in blankets. Patient appears uncomfortable but in no acute distress. HEENT: Good dentition. No ulcers or plaques seen throughout oral cavity. No erythema noted in her throat. No lymphadenopathy noted. Mild scleral icterus noted Pulmonary: Exam unremarkable with vesicular lung sounds noted. Cardiovascular: Tachycardic (HR 100-120) with regular rhythym. No murmurs, knocks, rubs noted. Normal S1 and S2 noted. Abdomen: Thin abdomen. Pain upon palpation in all 4 quadrants. Suprapublic tenderness. Postitive CVA tenderness. Normal bowel sounds in all 4 quadrants. No bruising or discolorations noted. No bruits noted. No scars noted. Extremities: No edema noted. No pain with calf palpation. Feet appear dry with no ulcerations or rashes noted. 7 inch bruise noted on lateral R thigh. Multiple 2-5 cm bruises noted on her LE B/L. Neuro: No focal deficits. No hyperreflexia, spasticity, or acute muscle weakness noted. Psych: Well-mannered and cooperative to exam. Alert and aware X3. Insight and judgment intact. Assessment and Plan: #Sepsis 2/2 Pyelonephritis/UTI: Blood cultures pending. Recieved IV fluid resusitation in the ER. Currently normotensive. Orthostatic vital signs remained stable overnight. Changed Rochephin IM to IV. CT abdomen was negative for acute pathology but it was noted that no contrast was used so pyelonephritis could not be ruled-out. Urinalysis demonstrated likely UTI, continue IV Rochephin. Will continue to monitor for clinical improvement. Will switch to oral antibiotics in 24-48 hours. #Transaminitis: Patient seen in ER on April 29 with RUQ pain. Serology showed likely acute Hep A. LFTs have been trending down since that time. Due to patients high risk behavior have ordered Hep B and C panel. Pt would likely benefit from Hepatitis B vaccine series. Pt still mildly jaundiced and has mild scleral icterus. #Hypokalemia: Patient mildly hypokalemic. Given 40 mEq KCl PO. Will continue to monitor #Hx of High risk behavior: Pt is a current IV Methamphetamine user. HIV testing has been ordered. Currently pending results, patient was counselled on cessation of IVDU. Pt will need follow-up with her PCP for hepatitis B vaccine. I saw and evaluated the patient. Discussed with the resident and agree with resident's findings and plan as documented in the resident's note VS,Kristy, I+O VS, Rishibone, I+O Laboratory Tests 05/08/19 01:33 Red Blood Count 4.85, Mean Corpuscular Volume 80.8, Mean Corpuscular Hemoglobin 26.4 L, Mean Corpuscular Hemoglobin Concent 32.7, Red Cell Distribution Width 20.7 H, Neutrophils (%) (Auto) 81.2 H, Lymphocytes (%) (Auto) 9.1 L, Monocytes (%) (Auto) 8.6 H, Eosinophils (%) (Auto) 0.1, Basophils (%) (Auto) 0.3, Neutrophils # (Auto) 12.0 H, Lymphocytes # (Auto) 1.3 L, Monocytes # (Auto) 1.3 H, Eosinophils # (Auto) 0.0, Basophils # (Auto) 0.1 05/08/19 07:12 Vital Signs Date Time Temp Pulse Resp B/P (MAP) Pulse Ox O2 Delivery O2 Flow Rate FiO2 05/08/19 07:48 103 116/62 (80) 05/08/19 07:40 99.8 05/08/19 06:31 18 99 05/08/19 02:54 Room Air I&O- Last 24 Hours up to 6 AM 05/08/19 06:00 Intake Total 1050 ml Balance 1050 ml MICHELLE RUBALCAVA S-3 May 08, 2019 11:12 QUANG ANNA MD May 09, 2019 07:11
[2019-05-08 15:33] VITALS: BP 100/58
[2019-05-08 20:00] VITALS: BP 113/58
[2019-05-08 21:25] LABS: HEPATITIS A ANTIBODY IGM POSITIVE (NEGATIVE); HEPATITIS B CORE ANTIBODY IGM NEGATIVE (NEGATIVE); HEPATITIS B SURFACE ANTIGEN NEGATIVE (NEGATIVE); HEPATITIS C VIRUS ABY INDEX 0.2 INDEX (<0.8); HIV 1&2 SCREEN CENTAUR NEGATIVE (NEGATIVE)
[2019-05-09] VITALS (10 sets, daily range): BP systolic 91–115; BP diastolic 52–80
[2019-05-09] MEDS: cefTRIAXone SOD 2 GM in D5W MINI-BAG PLUS 50 ML IV SCH (02:52)
[2019-05-09] MEDS ORDERED: cefTRIAXone SOD 2 GM VIAL (J0696) IM SCH (04:00)
[2019-05-09] MEDS ORDERED: cefTRIAXone SOD 2 GM VIAL (J0696) IV SCH (04:00)
[2019-05-09 05:34] LABS: HEMATOCRIT 31.2 % (36.0-47.0); MEAN CORPUSCULAR HGB CONC 32.4 g/dl (32.0-36.5); MEAN CORPUSCULAR VOLUME 80.4 fl (80.0-96.0); PLATELET COUNT, AUTOMATED 176 10^3/uL (150-450); RED BLOOD COUNT 3.88 10^6/uL (4.00-5.40); WHITE BLOOD COUNT 10.9 10^3/uL (4.0-10.0)
[2019-05-09 05:38] LABS: HEMOGLOBIN 10.1 g/dl (12.0-15.5)
[2019-05-09 06:14] LABS: BLOOD UREA NITROGEN 9 MG/DL (7-18); CARBON DIOXIDE LEVEL 24 MEQ/L (21-32); CHLORIDE LEVEL 108 MEQ/L (98-107); CREATININE FOR GFR 0.78 MG/DL (0.55-1.30); GLOMERULAR FILTRATION RATE > 60.0 (>60); GLUCOSE, FASTING 85 MG/DL (70-100); POTASSIUM SERUM 4.1 MEQ/L (3.5-5.1); SODIUM LEVEL 137 MEQ/L (136-145)
[2019-05-09 07:29] LABS: ALBUMIN 2.2 GM/DL (3.2-5.2); ALT/SGPT 289 U/L (12-78); BILIRUBIN,DIRECT 2.4 MG/DL (0.0-0.2); BILIRUBIN,TOTAL 2.9 MG/DL (0.2-1.0); TOTAL PROTEIN 6.9 GM/DL (6.4-8.2)
--- NOTE | 2019-05-09 10:57 | IPNPDOC ---
Text Note Date of Service The patient was seen on 05/09/19. NOTE Ms. Ghotra was seen at bedside this morning and stated she was mildly pruritic in all 4 extremities today. She denies any other acute changes to her condition. She states that her abdominal and flank pain and dysuria both improved overnight. Currently she rates her left pain as a 4/10 (yesterday was a 7/10). She says she is eating regularly and is urinating without incident. She denies N/V, chest pain, SOB. Per nursing, later in the afternoon Ms. Ghotra became hypotensive, tachipneic, and was dizzy upon ambulation. She received NS boluses and is currently on a NS drip overnight. General: Pt is a thin 28 year old woman sitting up in bed in no apparent distress. Patient is scratching her arms and legs. HEENT: Good dentition. No ulcers or plaques seen throughout oral cavity. No erythema noted in her throat. No lymphadenopathy noted. Mild scleral icterus n oted. Fundoscopic exam shows no infiltrates or a/v nicking noted. Pulmonary: Exam unremarkable with vesicular lung sounds noted. Cardiovascular: Regular rate and regular rhythm. No murmurs, knocks, rubs noted. Normal S1 and S2 noted. Abdomen: Thin abdomen. LUQ tender to palpation. Suprapubic tenderness. Normal bowel sounds in all 4 quadrants. No bruising or discolorations noted. No bruits noted. No scars noted. Extremities: No edema noted. No pain with calf palpation. Feet appear dry with no ulcerations or rashes noted. 7 inch bruise noted on lateral R thigh. Multiple 2-5 cm bruises noted on her LE B/L. No digital clubbing, cyanosis. Capillary refill 1-2 seconds. Neuro: No focal deficits. No hyperreflexia, spasticity, or acute muscle weakness noted. Psych: Well-mannered and cooperative to exam. Alert and aware X3. Insight and judgment intact. Assessment and Plan: #Sepsis 2/2 Pyelonephritis/UTI: Blood cultures negative. Patient became hypotensive and tachipneic today but pt reports no feelings of presyncope, distal pulses are palpable, and lactate does not indicate tissue hypoperfusion. She was given two 1L boluses of NS along with a 1L NS drip which will continue to support her pressures overnight. Her BP is responding to her ongoing resuscitation. CT abdomen on admission was negative for abscess formation or renal pathology but it was noted that no contrast was used so pyelonephritis could not be ruled-out. Urinalysis demonstrated likely UTI, continue IV Rochephin until urine cultures are complete then switch to PO antibiotics. Will continue to monitor for clinical improvement or worsening. #Transaminitis: Patient seen in ER on April 29 with RUQ pain. Serology showed likely acute Hep A. LFTs continue to trend down. Hep B and C panel taken on admission were negative. Pt would likely benefit from Hepatitis B vaccine series. Pt still mildly jaundiced and has mild scleral icterus. Today she reports generalized pruritis throughout her skin. #Hx of High risk behavior: Pt is a current IV Methamphetamine user. HIV testing was ordered and was negative. Patient was counselled on cessation of IVDU. Pt will need follow-up with her PCP for hepatitis B vaccine. I saw and evaluated the patient. I agree with the findings and plan of care as documented in the above note VS,Mariae, I+O VS, Kristy, I+O Laboratory Tests 05/09/19 05:08 Red Blood Count 3.88 L, Mean Corpuscular Volume 80.4, Mean Corpuscular Hemoglobin 26.0 L, Mean Corpuscular Hemoglobin Concent 32.4, Red Cell Distribution Width 20.7 H, Calcium Level 8.0 L Vital Signs Date Time Temp Pulse Resp B/P (MAP) Pulse Ox O2 Delivery O2 Flow Rate FiO2 05/09/19 08:05 97.2 101 16 99/53 (68) 99 05/08/19 02:54 Room Air I&O- Last 24 Hours up to 6 AM 05/09/19 06:00 Intake Total 2280 ml Output Total 400 ml Balance 1880 ml MICHELLE RUBALCAVA OMS-3 May 09, 2019 10:57 IMTIAZ PIMENTEL MD May 11, 2019 10:49
[2019-05-09] MEDS ORDERED: NS 1,000 ML IV ONE ×2 (11:30→13:45)
[2019-05-09] MEDS ORDERED: HYDROCORTISONE 1% CREAM 30 GM TOP ONE (15:00)
[2019-05-09] MEDS: NS 1,000 ML IV SCH ×2 (16:47→20:14)
[2019-05-10 02:00] VITALS: BP 110/75
[2019-05-10] MEDS: cefTRIAXone SOD 2 GM in D5W MINI-BAG PLUS 50 ML IV SCH (02:49)
[2019-05-10] MEDS: NS 1,000 ML IV SCH (05:16)
[2019-05-10 06:00] VITALS: BP 104/61
[2019-05-10 08:45] LABS: ALBUMIN 2.1 GM/DL (3.2-5.2); ALT/SGPT 209 U/L (12-78); BILIRUBIN,TOTAL 2.2 MG/DL (0.2-1.0); BLOOD UREA NITROGEN 6 MG/DL (7-18); CARBON DIOXIDE LEVEL 22 MEQ/L (21-32); CHLORIDE LEVEL 112 MEQ/L (98-107); CREATININE FOR GFR 0.78 MG/DL (0.55-1.30); GLOMERULAR FILTRATION RATE > 60.0 (>60); GLUCOSE, FASTING 99 MG/DL (70-100); POTASSIUM SERUM 3.8 MEQ/L (3.5-5.1); SODIUM LEVEL 140 MEQ/L (136-145); TOTAL PROTEIN 6.9 GM/DL (6.4-8.2)
[2019-05-10 09:21] LABS: BASO % 0.7 % (0.0-1.0); EOS # 0.2 10^3/uL (0.0-0.5); EOS % 3.6 % (0.0-3.0); HEMATOCRIT 30.3 % (36.0-47.0); HEMOGLOBIN 9.7 g/dl (12.0-15.5); LYMPH # 1.9 10^3/uL (1.5-5.0); LYMPH % 33.6 % (24.0-44.0); MEAN CORPUSCULAR HEMOGLOBIN 26.8 pg (27.0-33.0); MEAN CORPUSCULAR VOLUME 83.7 fl (80.0-96.0); MONO # 0.7 10^3/uL (0.0-0.8); MONO % 12.4 % (0.0-5.0); NEUTROPHILS # 2.7 10^3/uL (1.5-8.5); NEUTROPHILS % 49.3 % (36.0-66.0); PLATELET COUNT, AUTOMATED 163 10^3/uL (150-450); RED BLOOD COUNT 3.62 10^6/uL (4.00-5.40); WHITE BLOOD COUNT 5.6 10^3/uL (4.0-10.0)
[2019-05-10 10:00] VITALS: BP 111/72
[2019-05-10] MEDS ORDERED: LEVA750T7 PO (10:51)
--- NOTE | 2019-05-10 18:54 | DS.PDOC ---
Discharge Summary General Date of Admission May 08, 2019 at 04:41 Date of Discharge 05/10/19 Discharge Summary PROCEDURES PERFORMED DURING STAY: None. ADMITTING DIAGNOSES: 1. Sepsis secondary urine tract infection\pyelonephritis 2. Elevated transaminases secondary to hepatitis A 3. History of IV drug abuse DISCHARGE DIAGNOSES: 1. Sepsis secondary to urinary tract infection\pyelonephritis 2. Elevated transaminases secondary to hepatitis A 3. History of IV drug abuse COMPLICATIONS/CHIEF COMPLAINT: Sepsis, Uti. HISTORY OF PRESENT ILLNESS: Patient is a 29-year-old female who presented to the [facility] emergency department with complaint of nonradiating, 7 out of 10 severity pain in her back for 1 day duration. Patient admitted to symptoms of abdominal cramping and pain. She also admitted to dysuria and increased frequency. She did note chills and fevers. She denied any nausea or vomiting. Patient did say that she was dizzy with a past couple days. She admitted to decrease fluid intake. On evaluation in emergency department, the patient was found to have a temperature of 101.8, a white blood cell count of 14.0, lactic acid within normal limits. Patient had a urinalysis which suggested possible urinary tract infection. Her CT of the abdomen was unremarkable. However, the patient did not receive intravenous contrast and therefore cannot be fully evaluated for pyelonephritis. Patient did have costovertebral angle tenderness on evaluation in emergency department. At the time she met SIRS criteria and had received IV fluid. Blood cultures, chest x-ray and IV antibiotics. Patient was subsequently admitted to the hospital service for further evaluation and management of her urinary tract infection\pyelonephritis Once admitted to the hospitalist service. Patient was continued IV fluid hydration as well as IV antibiotics. The patient did show clinical improvement and was transferred out of the ICU. Patient was noted to develop hypotension and tachycardia. She had remained afebrile. A repeat lactic acid was ordered as there was concern for worsening of her sepsis. Her lactic acid was within normal limits. Patient was continued on IV fluid with orthostatic vital signs. Patient subsequently continued to improve clinically. Her urine culture came back positive for Escherichia coli with resistance to ampicillin. She was transitioned from IV antibiotics to oral medication. During her hospitalization, the patient was found to have elevated transaminases is producing seen on 04/29/2019 emergency department for a complaint of generalized pruritus. At the time she was diagnosed with an acute hepatitis A infection. At that time, her transaminase levels were significantly increased. On 04/29/2019 her AST was 1329 on repeat on 05/10/2019 it was 42, on 04/29/2019 her ALT was 1843, and on 05/10/2019 her ALT was 209. Patient has admitted to a positive IV drug use history. She has stated that she uses methamphetamine. She received repeat testing for hepatitis A, B, C and HIV. Results were negative for hepatitis B surface antigen, hepatitis B core IgM antibody, hepatitis C antibody index and HIV. The patient was positive for hepatitis A IgM antibody, indicating a acute\subacute infection. Patient was informed of her results and instructed to follow up outpatient for reevaluation of her transaminases to assess for normalization. Patient was discharged home with referral to a Primary care physician for follow-up for repeat liver profile. She was prescribed a 10 day course of Levaquin. She was counseled on cessation from IV drug use. DISCHARGE MEDICATIONS: Please see below. ALLERGIES: Please see below. PHYSICAL EXAMINATION ON DISCHARGE: VITAL SIGNS: Please see below. GENERAL: Awake, alert and oriented, appears in no acute distress, lying in bed HEENT: Atraumatic, normocephalic. Eyes nonicteric. Trachea is midline NECK: No palpable cervical, supraclavicular or axillary lymphadenopathy CARDIOVASCULAR EXAMINATION: Normal S1, S2, regular rate and rhythm. No clicks, rubs or murmurs RESPIRATORY EXAMINATION:. Clear vesicular breath sounds bilaterally. Good respiratory effort. No wheezes, rhonchi or rales ABDOMINAL EXAMINATION:. Soft, nondistended, nontender to palpation in all 4 quadrants. No rebound tenderness or guarding EXTREMITIES: No edema, 2+ posterior tibial 2+ radial pulses bilaterally SKIN:. No rashes or lesions NEUROLOGICAL EXAMINATION:. No focal neurological deficits PSYCHIATRIC EXAMINATION: Mood and affect appear appropriate LABORATORY DATA: Please see below. IMAGING: PROCEDURE INFORMATION: Exam: CT Abdomen and pelvis without contrast Exam date and time: 05/08/2019 2:16 AM Clinical history: 28 years old, female; Abdominal pain; Additional info: Pyelo eval TECHNIQUE: Imaging protocol: Computed tomography of the abdomen and pelvis without contrast. Radiation optimization: All CT scans at this facility use at least one of these dose optimization techniques: automated exposure control; mA and/or kV adjustment per patient size (includes targeted exams where dose is matched to clinical indication); or iterative reconstruction. COMPARISON: CT ABD PELVIS W/O CONTRAST 09/12/2018 10:12 PM FINDINGS: Liver: Normal. No mass. Gallbladder and bile ducts: Normal. No calcified stones. No ductal dilation. Pancreas: Normal. No ductal dilation. Spleen: Normal. No splenomegaly. Adrenals: Normal. No mass. Kidneys and ureters: Normal. No hydronephrosis. Stomach and bowel: Unremarkable. No obstruction. No mucosal thickening. Appendix: No evidence of appendicitis. Intraperitoneal space: Unremarkable. No free air. No significant fluid collection. Vasculature: Unremarkable. No abdominal aortic aneurysm. Lymph nodes: Unremarkable. No enlarged lymph nodes. Bladder: Unremarkable as visualized. Reproductive: Unremarkable as visualized. Bones/joints: Unremarkable. No acute fracture. Soft tissues: Unremarkable. IMPRESSION: No acute findings. Kidneys are grossly unremarkable but evaluation for pyelonephritis is limited without intravenous contrast. Electronically signed by: Ahsan Porter On 05/08/2019 02:58:38 AM PROGNOSIS: GOOD ACTIVITY: As tolerated. DIET: As tolerated DISCHARGE PLAN: Patient is to be discharged home with Levaquin 750 mg once daily for 10 days. She she has been referred to a primary care physician. She will need repeat liver profile to assess for normalization of her transaminases. Patient will also need hepatitis B series vaccine given her IV drug use and history of hepatitis A infection. She was instructed to abstain from IV drug use. DISPOSITION: 01 Home, Self-Care. DISCHARGE CONDITION: Stable. I saw and evaluated the patient. I agree with the findings and plan of care as documented in the documenters note. I spent 45 minutes coordinating this patient's discharge. Vital Signs/I&Os Vital Signs Date Time Temp Pulse Resp B/P (MAP) Pulse Ox O2 Delivery O2 Flow Rate FiO2 05/10/19 10:00 97.9 58 16 111/72 (85) 100 05/08/19 02:54 Room Air I&O- Last 24 Hours up to 6 AM 05/10/19 06:00 Intake Total 5495 ml Output Total 1825 ml Balance 3670 ml Laboratory Data Labs 24H Laboratory Tests 2 05/10/19 07:58: Anion Gap 6L, Glomerular Filtration Rate > 60.0, Blood Urea Nitrogen 6L, C reatinine 0.78, Sodium Level 140, Potassium Level 3.8, Chloride Level 112H, Carbon Dioxide Level 22, Calcium Level 8.0L, Aspartate Amino Transf (AST/SGOT) 42H, Alanine Aminotransferase (ALT/SGPT) 209H, Alkaline Phosphatase 202H, Total Bilirubin 2.2H, Total Protein 6.9, Albumin 2.1L, Albumin/Globulin Ratio 0.44L 05/10/19 08:41: Immature Granulocyte % (Auto) 0.4, White Blood Count 5.6, Red Blood Count 3.62L, Hemoglobin 9.7L, Hematocrit 30.3L, Mean Corpuscular Volume 83.7, Mean Corpuscular Hemoglobin 26.8L, Mean Corpuscular Hemoglobin Concent 32.0, Red Cell Distribution Width 20.5H, Platelet Count 163, Neutrophils (%) (Auto) 49.3, Lymphocytes (%) (Auto) 33.6, Monocytes (%) (Auto) 12.4H, Eosinophils (%) (Auto) 3.6H, Basophils (%) (Auto) 0.7, Neutrophils # (Auto) 2.7, Lymphocytes # (Auto) 1.9, Monocytes # (Auto) 0.7, Eosinophils # (Auto) 0.2, Basophils # (Auto) 0.0, Nucleated Red Blood Cells % (auto) 0.0 05/10/19 11:29: Bedside Glucose (Misc Panel) 78 CBC/BMP Laboratory Tests 05/10/19 07:58 Calcium Level 8.0 L, Aspartate Amino Transf (AST/SGOT) 42 H, Alanine Aminotransferase (ALT/SGPT) 209 H, Alkaline Phosphatase 202 H, Total Bilirubin 2.2 H, Total Protein 6.9, Albumin 2.1 L 05/10/19 08:41 Red Blood Count 3.62 L, Mean Corpuscular Volume 83.7, Mean Corpuscular Hemoglobin 26.8 L, Mean Corpuscular Hemoglobin Concent 32.0, Red Cell Distribution Width 20.5 H, Neutrophils (%) (Auto) 49.3, Lymphocytes (%) (Auto) 33.6, Monocytes (%) (Auto) 12.4 H, Eosinophils (%) (Auto) 3.6 H, Basophils (%) (Auto) 0.7, Neutrophils # (Auto) 2.7, Lymphocytes # (Auto) 1.9, Monocytes # (Auto) 0.7, Eosinophils # (Auto) 0.2, Basophils # (Auto) 0.0 FSBS Laboratory Tests Test 05/10/19 11:29 Range/Units Bedside Glucose (Misc Panel) 78 70-105 MG/DL Microbiology Microbiology 05/08/19 Urine Culture - Final, Complete Escherichia Coli 05/08/19 Blood Culture - Preliminary, Resulted No Growth after 48 hours. All Specime... Discharge Medications Scheduled Levofloxacin (Levaquin) 750 Mg Tablet, 750 MG PO DAILY Allergies Coded Allergies: Penicillins (Verified Allergy, Intermediate, RASH, 04/29/19) KIP SHEPHERD DO May 10, 2019 18:53 IMTIAZ PIMENTEL MD May 11, 2019 11:00
== END 2019-05-10 14:12 | disposition home or self-care (01) | DRG 720 ==
LOC: M ED 01:01 → M ED INP 04:41 → M ICU 06:09 → M MSPAV 05-09 10:09
PROVIDERS: ADMIT Internal Medicine; ATTEND Internal Medicine
DX: A41.9 Sepsis, unspecified organism (principal); N10 Acute pyelonephritis; B17.9 Acute viral hepatitis, unspecified; Z88.0 Allergy status to penicillin; Z79.899 Other long term (current) drug therapy

== ENCOUNTER 2019-09-07 06:08 | Emergency (ER) | payer MEDICAID ==
[~2019-09-07] VITALS: Ht 165.1 cm; Wt 56.8 kg
[2019-09-07] MEDS ORDERED: NS 1,000 ML IV ONE (06:30)
[2019-09-07 07:02] LABS: BASO % 0.2 % (0.0-1.0); EOS # 0.1 10^3/uL (0.0-0.5); EOS % 1.1 % (0.0-3.0); HEMATOCRIT 40.4 % (36.0-47.0); HEMOGLOBIN 12.5 g/dl (12.0-15.5); LYMPH # 1.3 10^3/uL (1.5-5.0); LYMPH % 13.8 % (24.0-44.0); MEAN CORPUSCULAR HEMOGLOBIN 26.2 pg (27.0-33.0); MEAN CORPUSCULAR HGB CONC 30.9 g/dl (32.0-36.5); MEAN CORPUSCULAR VOLUME 84.7 fl (80.0-96.0); MONO # 0.6 10^3/uL (0.0-0.8); MONO % 6.8 % (0.0-5.0); NEUTROPHILS # 7.4 10^3/uL (1.5-8.5); NEUTROPHILS % 77.7 % (36.0-66.0); PLATELET COUNT, AUTOMATED 301 10^3/uL (150-450); RED BLOOD COUNT 4.77 10^6/uL (4.00-5.40); WHITE BLOOD COUNT 9.5 10^3/uL (4.0-10.0)
[2019-09-07] MEDS ORDERED: KETOROLAC 30 MG/ML VIAL (J1885) IV ONE (07:15)
[2019-09-07 07:28] LABS: ALBUMIN 3.4 GM/DL (3.2-5.2); ALT/SGPT 317 U/L (12-78); BILIRUBIN,DIRECT 0.4 MG/DL (0.0-0.2); BILIRUBIN,TOTAL 0.7 MG/DL (0.2-1.0); BLOOD UREA NITROGEN 11 MG/DL (7-18); CALCIUM LEVEL 8.8 MG/DL (8.5-10.1); CARBON DIOXIDE LEVEL 26 MEQ/L (21-32); CHLORIDE LEVEL 103 MEQ/L (98-107); CREATININE FOR GFR 0.87 MG/DL (0.55-1.30); GLOMERULAR FILTRATION RATE > 60.0 (>60); GLUCOSE, FASTING 131 MG/DL (70-100); SODIUM LEVEL 136 MEQ/L (136-145); TOTAL PROTEIN 8.8 GM/DL (6.4-8.2)
[2019-09-07 09:09] LABS: AMORPHOUS SEDIMENT SMALL (NEGATIVE); APPEARANCE, URINE HAZY (CLEAR); BACTERIA, URINE AUTO 2+ (NEGATIVE); BILIRUBIN, URINE AUTO NEGATIVE (NEGATIVE); BLOOD, URINE BLOOD NEGATIVE (NEGATIVE); COLOR, URINE YELLOW (YELLOW); GLUCOSE, URINE (UA) AUTO NEGATIVE (NEGATIVE); KETONE, URINE AUTO NEGATIVE (NEGATIVE); LEUKOCYTE ESTERASE, URINE AUTO 1+ (NEGATIVE); MUCUS, URINE SMALL (NEGATIVE); NITRITE, URINE AUTO POSITIVE (NEGATIVE); PROTEIN, URINE AUTO NEGATIVE (NEGATIVE); RBC, URINE AUTO 3 /HPF (0-3); SQUAMOUS EPITHELIAL CELL UR AU 3 /HPF (0-6); UROBILINOGEN, URINE AUTO 0.2 mg/dL (0.0-2.0); WBC, URINE AUTO 32 /HPF (0-3)
[2019-09-07 09:24] LABS: INR 1.11
[2019-09-07] MEDS ORDERED: LevoFLOXacin IV 750 MG in IV 1 EA IV ONE (09:30)
[2019-09-07] MEDS ORDERED: LEVA750T7 PO (09:31)
--- NOTE | 2019-09-07 09:38 | REP ---
RENAL ULTRASOUND: Real-time sonographic evaluation of the kidneys performed. The kidneys are normal in size, right kidney measuring 12.2 x 5.7 x 6.3 cm and left kidney 113. X 45. X 6.1 cm. Medullary pyramids appear echogenic. There is no hydronephrosis bilaterally. Questionable 2 mm calculus is seen in the upper right renal collecting system and questionable 3 mm calculus is seen in the left lower pole collecting system. There is a complex cystic structure incidentally noted involving the left ovary 3.8 x 2.9 x 4.3 cm most consistent with a complex cyst. There appears to be some complex fluid surrounding the left ovary. There is no evidence of ovarian torsion. Blood flow is seen with duplex Doppler evaluation within each ovary. The urinary bladder is grossly unremarkable with bilateral ureteral jets noted with Doppler color evaluation. IMPRESSION: Echogenic medullary pyramids could indicate medullary sponge kidney or dehydration. No hydronephrosis. Possible tiny stone in each renal collecting system as above. Ureteral jets seen in the urinary bladder with Doppler color evaluation. Complex cyst left ovary 4.3 cm maximally. Probable mild complex fluid surrounding the right ovary. No torsion. Preliminary report provided by [facility] at the time of the exam. Electronically Signed by Robson Espana MD 09/08/2019 11:19 A
[2019-09-07 11:19] VITALS: BP 112/66
== END 2019-09-07 11:21 | disposition home or self-care (01) ==
LOC: M ED 06:08
DX: N10 Acute pyelonephritis (principal); R94.5 Abnormal results of liver function studies; B15.9 Hepatitis A without hepatic coma; E86.0 Dehydration; R00.0 Tachycardia, unspecified; F17.200 Nicotine dependence, unspecified, uncomplicated; Z87.442 Personal history of urinary calculi; F19.10 Other psychoactive substance abuse, uncomplicated; Z88.0 Allergy status to penicillin
CPT/HCPCS: 36415; 76775; 80048; 80076; 81001; 83605; 84702; 85025; 85610; 87040; 87086; 96361; 96365; 96366; 96375; 99284; J1885; J1956

== ENCOUNTER 2021-10-10 03:14 | Emergency (ER) | payer MEDICAID ==
[~2021-10-10] VITALS: Ht 165.1 cm; Wt 68.2 kg
[2021-10-10 03:23] VITALS: BP 116/69
== END 2021-10-10 04:50 | disposition left against medical advice (07) ==
LOC: M ED 03:14
DX: Z53.21 Procedure and treatment not carried out due to patient leaving prior to being seen by health care provider (principal)

== ENCOUNTER → 2023-04-02 | Outpatient (REF) | payer MEDICAID ==
[2023-04-02 18:46] LABS: GC DNA AMPLIFICATION NEGATIVE (NEGATIVE)
== END ==
LOC: M LAB REF 16:05
PROVIDERS: ATTEND Surgery
DX: A64 Unspecified sexually transmitted disease (principal)